=== PATIENT | male | born 1975 | race Caucasian/White ===

== ENCOUNTER 2021-02-22 04:14 | Emergency (ER) | payer OTHER ==
[~2021-02-22] VITALS: Ht 182.9 cm; Wt 91.0 kg
[2021-02-22] MEDS ORDERED: LORAZEPAM 2MG/ML CPJ IV ONE (05:00)
[2021-02-22] MEDS ORDERED: SODIUM CHLORIDE 0.9% 1,000 ML IV ONE (05:00)
[2021-02-22 05:07] LABS: EOSINOPHILS % 0.2 % (0.0-5.0); HEMATOCRIT. 39.8 % (42.0-52.0); HEMOGLOBIN. 13.3 g/dL (14.0-18.0); LYMPHOCYTES % 24.1 % (20.0-50.0); MEAN CORPUSCULAR HEMOGLOBIN 31.2 pg (28.0-32.0); MEAN CORPUSCULAR VOLUME 93.6 fL (80.0-94.0); MEAN PLATELET VOLUME 6.5 fl (7.4-10.4); MONOCYTES % 10.4 % (2.0-8.0); NEUTROPHILS % 64.3 % (40.0-76.0); PLATELET 324 x1000/uL (130-400); RED BLOOD CELL COUNT 4.25 mill/uL (4.7-6.1); RED CELL DISTRIBUTION WIDTH 14.6 % (11.6-14.6)
[2021-02-22 05:13] LABS: CHLORIDE 101 mEq/L (98-107)
[2021-02-22 05:17] LABS: ETHANOL BLOOD < 10 mg/dL
[2021-02-22] MEDS ORDERED: POTASSIUM CHLORIDE 20MEQ TABLET SR PO ONE (05:30)
[2021-02-22] MEDS ORDERED: KCL 10MEQ/50ML PREMIX 50 ML IV ONE ×2 (05:30)
[2021-02-22 06:02] LABS: *COCAINE SCREEN URINE NEGATIVE (NEGATIVE); METHADONE URINE SCREEN NEGATIVE (NEGATIVE); OPIATES URINE SCREEN NEGATIVE (NEGATIVE)
[2021-02-22 06:03] LABS: *AMPHETAMINES SCREEN URINE NEGATIVE (NEGATIVE); *BARBITURATES SCREEN URINE NEGATIVE (NEGATIVE); *BENZODIAZEPINES SCREEN URINE NEGATIVE (NEGATIVE); CANNABINOID URINE SCREEN NEGATIVE (NEGATIVE); PHENCYCLIDINE URINE SCREEN NEGATIVE (NEGATIVE)
[2021-02-22] MEDS ORDERED: POTA10CA42 MT (06:26)
[2021-02-22] MEDS ORDERED: LORA-250 MT (06:26)
[2021-02-22] MEDS ORDERED: CHLORDIAZEPOXIDE 25MG CAPSULE PO ONE (06:30)
[2021-02-22 09:06] VITALS: BP 163/106
== END 2021-02-22 09:27 | disposition home or self-care (01) ==
LOC: ER 04:22
DX: F41.9 Anxiety disorder, unspecified (principal); F10.239 Alcohol dependence with withdrawal, unspecified; Y90.0 Blood alcohol level of less than 20 mg/100 ml; E87.6 Hypokalemia; Z85.72 Personal history of non-Hodgkin lymphomas
CPT/HCPCS: 36415; 71045; 80053; 80305; 80320; 84484; 85025; 93005; 96361; 96365; 96375; 99285; J2060; J3480; J7030; G0480

== ENCOUNTER 2021-06-22 11:05 | Emergency (ER) | payer OTHER ==
[~2021-06-22] VITALS: Ht 177.8 cm; Wt 86.0 kg
[~2021-06-22 11:05] MED LIST: LORA-250 MT; POTA10CA42 MT
[2021-06-22 11:09] VITALS: BP 174/108
== END 2021-06-22 16:38 | disposition left against medical advice (07) ==
LOC: ER 11:05
DX: E86.0 Dehydration (principal); Z53.21 Procedure and treatment not carried out due to patient leaving prior to being seen by health care provider
CPT/HCPCS: 93005; Z7610

== ENCOUNTER 2024-11-19 19:58 | Emergency (ER) | payer OTHER ==
[~2024-11-19] VITALS: Ht 172.7 cm; Wt 87.0 kg
[~2024-11-19 19:58] MED LIST changes: -POTA10CA42 MT; +POTA10CA93 MT
[2024-11-19 20:01] VITALS: O2SAT 98
[2024-11-20 02:47] LABS: HEMATOCRIT. 46.3 % (42.0-52.0); HEMOGLOBIN. 15.1 g/dL (14.0-18.0); MEAN CORPUSCULAR HEMOGLOBIN 30.3 pg (28.0-32.0); MEAN CORPUSCULAR HGB CONC 32.6 g/dL (31.0-37.0); MEAN CORPUSCULAR VOLUME 93.2 fL (80.0-94.0); MEAN PLATELET VOLUME 7.2 fl (7.4-10.4); PLATELET 286 x1000/uL (130-400); RED BLOOD CELL COUNT 4.97 mill/uL (4.7-6.1); RED CELL DISTRIBUTION WIDTH 14.8 % (11.6-14.6)
[2024-11-20 02:51] LABS: DIFFERENTIAL COMMENT 1
[2024-11-20 02:56] LABS: POTASSIUM 4.1 mEq/L (3.5-5.1)
[2024-11-20 02:57] LABS: CALCIUM 9.6 mg/dL (8.7-10.4)
[2024-11-20 03:02] LABS: CREATININE 1.6 mg/dL (0.6-1.3)
[2024-11-20] MEDS: SODIUM CHLORIDE 0.9% 1,000 ML IV ONE (03:48)
[2024-11-20] MEDS: KETOROLAC 30MG/ML VIAL IV STA (03:51)
[2024-11-20 05:21] VITALS: BP 118/66; PULSE 100; RESP 16; TEMP 36.66960; O2SAT 98
[2024-11-20 07:55] LABS: PLATELET ESTIMATE NORMAL
== END 2024-11-20 05:22 | disposition home or self-care (01) ==
LOC: ER 19:58
DX: M79.10 Myalgia, unspecified site (principal); R05.9 Cough, unspecified; R42 Dizziness and giddiness; R53.1 Weakness; F12.10 Cannabis abuse, uncomplicated; Z79.899 Other long term (current) drug therapy
CPT/HCPCS: 36415; 71045; 99285; 80048; 85025; 93005; 96374; J1885; J7030; A4663; Z7610; A4606